=== PATIENT | female | born 1980 | race Caucasian/White ===

== ENCOUNTER 2023-06-19 19:07 | Emergency (ER) | payer MEDICAID ==
[~2023-06-19] VITALS: Ht 152.4 cm; Wt 79.4 kg
[2023-06-19 19:27] VITALS: BP_SYST 134; PULSE 85; RESP 20; TEMP 97.2; O2SAT 98
[2023-06-20] MEDS ORDERED: CEPH-548 PO (09:48)
== END 2023-06-19 22:09 | disposition left against medical advice (07) ==
LOC: SED 19:07
DX: S41.112D Laceration without foreign body of left upper arm, subsequent encounter (principal); Z53.21 Procedure and treatment not carried out due to patient leaving prior to being seen by health care provider; Y04.8XXD Assault by other bodily force, subsequent encounter
CPT/HCPCS: 99281

== ENCOUNTER 2023-06-20 08:58 | Emergency (ER) | payer MEDICAID ==
[~2023-06-20] VITALS: Ht 152.4 cm; Wt 79.4 kg
[2023-06-20 09:06] VITALS: BP_SYST 109; PULSE 79; RESP 15; TEMP 97.2; O2SAT 98
[2023-06-20] MEDS: LIDOCAINE 1% 10 MG/ML, 20 ML MDV INJ ONE (09:46)
[2023-06-20] MEDS ORDERED: CEPH-548 PO (09:48)
[2023-06-20] MEDS: DIPHTH,PERTUSS(ACELL),TET VAC 0.5 ML VIAL (Tdap) I.M. ONE (09:58)
[2023-06-20 10:04] VITALS: BP_SYST 110; PULSE 89; RESP 16; TEMP 97.2; O2SAT 98
== END 2023-06-20 10:08 | disposition home or self-care (01) ==
LOC: SED 08:58
DX: S46.322A Laceration of muscle, fascia and tendon of triceps, left arm, initial encounter (principal); Z79.899 Other long term (current) drug therapy; Y04.8XXA Assault by other bodily force, initial encounter; Y93.89 Activity, other specified; Y92.89 Other specified places as the place of occurrence of the external cause; Y99.8 Other external cause status
CPT/HCPCS: 90715; 99283; J2001

== ENCOUNTER 2023-06-27 13:07 | Emergency (ER) | payer MEDICAID ==
[~2023-06-27] VITALS: Ht 152.4 cm; Wt 74.8 kg
[~2023-06-27 13:07] MED LIST: CEPH-548 PO
[2023-06-27 13:29] VITALS: BP_SYST 119; PULSE 85; RESP 14; TEMP 98; O2SAT 98
[2023-06-27] MEDS: ceFAZolin SODIUM 1 GM VIAL IM ONE (13:39)
[2023-06-27 14:01] VITALS: BP_SYST 139; PULSE 89; RESP 14; TEMP 98; O2SAT 98
== END 2023-06-27 14:01 | disposition home or self-care (01) ==
LOC: SED 13:07
DX: L03.114 Cellulitis of left upper limb (principal); Z48.02 Encounter for removal of sutures; Z79.899 Other long term (current) drug therapy
CPT/HCPCS: 99283; 96372; J0690